=== PATIENT | male | born 2000 | race Caucasian/White ===

== ENCOUNTER 2024-06-19 21:06 | Emergency (ER) | payer BC ==
[2024-06-19] MEDS: Ibuprofen 800 MG Tab PO ONE (23:22)
[2024-06-19] MEDS: Acetaminophen 500 MG Tab PO ONE (23:22)
[2024-06-19] MEDS: Amoxicillin/Clavulanate K 875-125 MG Tab PO ONE (23:23)
[2024-06-19] MEDS: Benzocaine 20% Topical Spray UD MUCMEM ONE (23:23)
[2024-06-19] MEDS: Lidocaine 2% Viscous Solution 15 ML UD PO ONE (23:23)
== END 2024-06-20 00:10 | disposition home or self-care (01) ==
LOC: MW.ED 21:06
DX: K04.7 Periapical abscess without sinus (principal); Z75.8 Other problems related to medical facilities and other health care
CPT/HCPCS: 41800; 99282; A9270